=== PATIENT | male | born 1965 | race Two or more races ===

== ENCOUNTER 2021-05-07 09:46 | Emergency (ER) | payer SELFPAY ==
[~2021-05-07] VITALS: Ht 175.3 cm; Wt 59.0 kg
[2021-05-07] MEDS ORDERED: FLUORESCEIN SOD OPTH TEST STRIP RIGHTEYE ONE (11:15)
[2021-05-07] MEDS ORDERED: TETRACAINE HCL 0.5% OPTH(EYE) SOLN 4ML RIGHTEYE ONE (11:15)
[2021-05-07 11:49] VITALS: BP 148/56
== END 2021-05-07 13:41 | disposition home or self-care (01) ==
LOC: ER 09:46 → EDBD 09:46 → ER 13:41
DX: S93.401A Sprain of unspecified ligament of right ankle, initial encounter (principal); S05.01XA Injury of conjunctiva and corneal abrasion without foreign body, right eye, initial encounter; W01.0XXA Fall on same level from slipping, tripping and stumbling without subsequent striking against object, initial encounter; Y93.89 Activity, other specified; Y92.89 Other specified places as the place of occurrence of the external cause; Y99.8 Other external cause status
CPT/HCPCS: 73610